=== PATIENT | male | born 1985 | race Caucasian/White ===

== ENCOUNTER 2023-08-13 10:20 | Inpatient (IN) | payer OTHER ==
[~2023-08-13] VITALS: Ht 190.5 cm; Wt 95.9 kg
[2023-08-13] MEDS ORDERED: SODIUM CHLORIDE 0.9% 100 ML ONE (12:02)
[2023-08-13] MEDS ORDERED: IOHEXOL 350 MG/ML 100 ML VIAL ONE (12:02)
[2023-08-13] MEDS ORDERED: ONDANSETRON HCL 4 MG/2 ML VIAL IVP PRN (12:15)
[2023-08-13 12:22] LABS: BASOPHILS % (AUTO) 0.1 % (0.0-2.0); EOSINOPHILS % (AUTO) 0.1 % (1.0-6.0); HEMATOCRIT 35.3 % (41-53); LYMPHOCYTES # (AUTO) 1.2 K/uL (1.0-4.8); LYMPHOCYTES % (AUTO) 12.4 % (22.0-44.0); MEAN CORPUSCULAR HEMOGLOBIN 30.9 pg (26.0-34.0); MEAN CORPUSCULAR HGB CONC 34.1 G/dL (31.0-37.0); MEAN CORPUSCULAR VOLUME 91 fL (80-100); MONOCYTES # (AUTO) 0.7 K/uL (0.1-1.0); MONOCYTES % (AUTO) 7.2 % (2.0-9.0); NEUTROPHILS # (AUTO) 7.9 K/uL (1.8-7.7); NEUTROPHILS % (AUTO) 80.2 % (40.0-70.0); PLATELET COUNT (AUTO) 258 K/uL (150-450); RED BLOOD CELL COUNT(AUTO) 3.89 MIL/uL (4.50-5.90); RED CELL DISTRIBUTION WIDTH 13.4 % (11.5-14.5); WHITE BLOOD COUNT (AUTO) 9.9 K/uL (4.5-11.0)
[2023-08-13 12:39] LABS: ANION GAP 3 mmol/L (8-16); CALCIUM, TOTAL 9.2 mg/dL (8.8-10.5); CARBON DIOXIDE 30 mmol/L (22-29); CHLORIDE 103 mmol/L (98-107); GLOMERULAR FILTR. RATE CALC > 60 mL/min (>60); GLUCOSE,RANDOM 92 mg/dL (70-110); SODIUM SERUM 136 mmol/L (136-145); UREA NITROGEN, BLOOD 7 mg/dL (7-18)
[2023-08-13] MEDS: MORPHINE SULFATE 4 MG/ML SYRINGE IVP ONE (13:43)
[2023-08-13] MEDS: ONDANSETRON HCL 4 MG/2 ML VIAL IVP ONE (13:44)
[2023-08-13] MEDS: OxyCODONE HCL/ACETAMINOPHEN 5-325 MG TABLET PO PRN ×2 (16:04→21:26)
[2023-08-13 19:22] VITALS: BP 131/68; PULSE 88; RESP 18; TEMP 98.2; O2SAT 99
[2023-08-13 19:47] VITALS: BP 143/91; PULSE 76; RESP 19; TEMP 99.3
[2023-08-13] MEDS: DOCUSATE SODIUM 100 MG CAPSULE PO SCH (20:10)
[2023-08-13 21:20] VITALS: BP 143/89; PULSE 82; RESP 18
[2023-08-14] MEDS: ZOLPIDEM TARTRATE 5 MG TABLET PO PRN (00:01)
[2023-08-14 03:52] VITALS: BP 142/75; PULSE 69; RESP 17; TEMP 99.1
[2023-08-14] MEDS: FAMOTIDINE 20 MG TABLET PO SCH (08:22)
[2023-08-14 08:51] VITALS: BP 139/77; PULSE 64; RESP 20; TEMP 98.2
[2023-08-14] MEDS ORDERED: GADOTERATE MEGLUMINE 10 MMOL/20 ML VIAL IVP ONE (13:55)
[2023-08-14 20:49] VITALS: BP 134/72; PULSE 81; RESP 20; TEMP 98.5
[2023-08-15 02:37] VITALS: BP 140/80; PULSE 70; RESP 20; TEMP 98.3
[2023-08-15 07:39] VITALS: BP 139/82; PULSE 67; RESP 18; TEMP 97.9
[2023-08-15] MEDS ORDERED: MAGNESIUM HYDROXIDE SUSPENSION 30 ML UDCUP PO PRN (12:30)
[2023-08-15] MEDS ORDERED: SODIUM CHLORIDE 0.9% 500 ML IV ONE (12:46)
[2023-08-15 13:15] LABS: BASOPHILS % (AUTO) 0.3 % (0.0-2.0); EOSINOPHILS % (AUTO) 0.1 % (1.0-6.0); HEMATOCRIT 36.2 % (41-53); HEMOGLOBIN 12.1 g/dL (13.5-17.5); LYMPHOCYTES # (AUTO) 1.2 K/uL (1.0-4.8); LYMPHOCYTES % (AUTO) 9.9 % (22.0-44.0); MEAN CORPUSCULAR HEMOGLOBIN 30.2 pg (26.0-34.0); MEAN CORPUSCULAR HGB CONC 33.4 G/dL (31.0-37.0); MEAN CORPUSCULAR VOLUME 91 fL (80-100); MONOCYTES # (AUTO) 1.4 K/uL (0.1-1.0); MONOCYTES % (AUTO) 10.9 % (2.0-9.0); NEUTROPHILS # (AUTO) 9.9 K/uL (1.8-7.7); NEUTROPHILS % (AUTO) 78.8 % (40.0-70.0); PLATELET COUNT (AUTO) 235 K/uL (150-450); RED CELL DISTRIBUTION WIDTH 13.4 % (11.5-14.5); WHITE BLOOD COUNT (AUTO) 12.6 K/uL (4.5-11.0)
[2023-08-15 13:20] LABS: ERYTHROCYTE SEDIMENTATION RATE 54 MM/HR (0-15)
[2023-08-15] MEDS: BISACODYL 10 MG RECTAL RECTAL SUPPOSITORY PR PRN (15:24)
[2023-08-15] MEDS: HEPARIN SODIUM,PORCINE 5,000 UNITS/ML VIAL SQ SCH (16:23)
[2023-08-15] MEDS: VANCOMYCIN 1.75GM/WATER(PEG) 350 ML IV ONE (19:01)
[2023-08-15 19:23] VITALS: BP 135/82; PULSE 87; RESP 19; TEMP 99.8
[2023-08-16] MEDS: VANCOMYCIN 1.25 GM/WATER(PEG) 250 ML IV SCH (00:27)
[2023-08-16 04:05] VITALS: BP 135/86; PULSE 74; RESP 19; TEMP 98
[2023-08-16 06:16] LABS: BASOPHILS % (AUTO) 0.3 % (0.0-2.0); EOSINOPHILS % (AUTO) 0.2 % (1.0-6.0); HEMATOCRIT 37.3 % (41-53); HEMOGLOBIN 12.6 g/dL (13.5-17.5); LYMPHOCYTES # (AUTO) 2.5 K/uL (1.0-4.8); LYMPHOCYTES % (AUTO) 18.9 % (22.0-44.0); MEAN CORPUSCULAR HEMOGLOBIN 30.6 pg (26.0-34.0); MEAN CORPUSCULAR HGB CONC 33.8 G/dL (31.0-37.0); MEAN CORPUSCULAR VOLUME 91 fL (80-100); MONOCYTES # (AUTO) 1.1 K/uL (0.1-1.0); MONOCYTES % (AUTO) 8.1 % (2.0-9.0); NEUTROPHILS # (AUTO) 9.6 K/uL (1.8-7.7); NEUTROPHILS % (AUTO) 72.5 % (40.0-70.0); PLATELET COUNT (AUTO) 274 K/uL (150-450); RED BLOOD CELL COUNT(AUTO) 4.12 MIL/uL (4.50-5.90); RED CELL DISTRIBUTION WIDTH 13.3 % (11.5-14.5); WHITE BLOOD COUNT (AUTO) 13.3 K/uL (4.5-11.0)
[2023-08-16 06:43] LABS: ANION GAP 9 mmol/L (8-16); C-REACTIVE PROTEIN QUANT 12.98 mg/dL (0.00-0.30); CALCIUM, TOTAL 9.2 mg/dL (8.8-10.5); CARBON DIOXIDE 28 mmol/L (22-29); CHLORIDE 99 mmol/L (98-107); CREATININE 0.62 mg/dL (0.60-1.30); GLOMERULAR FILTR. RATE CALC > 60 mL/min (>60); GLUCOSE,RANDOM 101 mg/dL (70-110); POTASSIUM 3.6 mmol/L (3.5-5.1); SODIUM SERUM 136 mmol/L (136-145); UREA NITROGEN, BLOOD 6 mg/dL (7-18)
[2023-08-16 08:01] VITALS: BP 131/83; PULSE 73; RESP 18; TEMP 98.4
[2023-08-16 12:20] LABS: APPEARANCE,URINE CLEAR (CLEAR); BILIRUBIN,URINE NEGATIVE (NEGATIVE); COLOR,URINE COLORLESS (YELLOW); GLUCOSE, URINE (UA) NEGATIVE (NEGATIVE); KETONES,URINE NEGATIVE (NEGATIVE); LEUKOCYTE ESTERASE ,URINE NEGATIVE (NEGATIVE); NITRATE,URINE NEGATIVE (NEGATIVE); OCCULT BLOOD,URINE NEGATIVE (NEGATIVE); PH,URINE 6.5 (5.0-8.0); PH,URINE DRUG SCREEN 6.5 (5.0-8.0); PROTEIN,URINE NEGATIVE (NEGATIVE); SPECIFIC GRAVITIY, URINE 1.006 (1.003-1.030); UROBILINOGEN,URINE <=1.0 mg/dL (<=1.0)
[2023-08-16 12:23] LABS: AMPHET/METH SCREEN,URINE NEGATIVE (NEGATIVE); BARBITURATE SCREEN, URINE NEGATIVE (NEGATIVE); BENZODIAZEPINES SCREEN,URINE NEGATIVE (NEGATIVE); CANNABINOID SCREEN,URINE NEGATIVE (NEGATIVE); COCAINE SCREEN,URINE NEGATIVE (NEGATIVE); METHADONE SCREEN, URINE NEGATIVE (NEGATIVE); OPIATE SCREEN,URINE NEGATIVE (NEGATIVE); PHENCYCLIDINE SCREEN,URINE NEGATIVE (NEGATIVE)
[2023-08-16 12:24] LABS: ALCOHOL, URINE DRUG SCREEN NEGATIVE (NEGATIVE)
[2023-08-16] MEDS: CefTAZidime PENTAHYDRATE 2 GM in DEXTROSE 5%-WATER 50 ML IV SCH (16:35)
[2023-08-16 20:56] VITALS: BP 133/85; PULSE 90; RESP 18; TEMP 100.1
[2023-08-17 05:25] VITALS: BP 125/73; PULSE 72; RESP 20; TEMP 98.4
[2023-08-17 07:17] LABS: INR 1.1 (0.9-1.1)
[2023-08-17 07:22] LABS: ANION GAP 8 mmol/L (8-16); CALCIUM, TOTAL 9.6 mg/dL (8.8-10.5); CARBON DIOXIDE 29 mmol/L (22-29); CHLORIDE 100 mmol/L (98-107); CREATININE 0.58 mg/dL (0.60-1.30); GLOMERULAR FILTR. RATE CALC > 60 mL/min (>60); GLUCOSE,RANDOM 97 mg/dL (70-110); POTASSIUM 3.7 mmol/L (3.5-5.1); SODIUM SERUM 137 mmol/L (136-145); UREA NITROGEN, BLOOD 8 mg/dL (7-18)
[2023-08-17 08:54] VITALS: BP 130/86; PULSE 86; RESP 20; TEMP 98.9
[2023-08-17 16:11] VITALS: BP 131/79; PULSE 91; RESP 18; TEMP 98.8
[2023-08-17] MEDS ORDERED: SODIUM CHLORIDE 0.9% 500 ML IV ONE (16:28)
[2023-08-17] MEDS: ACETAMINOPHEN 325 MG TABLET PO PRN (17:24)
[2023-08-17 17:30] VITALS: BP 161/79; PULSE 98; RESP 16; TEMP 100.2
[2023-08-17 18:39] VITALS: BP 129/65; PULSE 102; RESP 16; TEMP 99.1
[2023-08-17 20:20] VITALS: BP 122/55; PULSE 98; RESP 17; TEMP 98.5
[2023-08-18 04:00] VITALS: BP 117/72; PULSE 83; RESP 18; TEMP 99
[2023-08-18 08:22] VITALS: BP 122/77; PULSE 70; RESP 19; TEMP 98.9
[2023-08-18] MEDS: CEFEPIME HCL 2 GM in DEXTROSE 5%-WATER 50 ML IV SCH (15:44)
[2023-08-18 20:28] VITALS: BP 124/66; PULSE 84; RESP 18; TEMP 100.1
[2023-08-19 05:25] VITALS: BP 125/81; PULSE 69; RESP 18; TEMP 97.9
[2023-08-19 06:42] LABS: BASOPHILS % (AUTO) 0.3 % (0.0-2.0); EOSINOPHILS % (AUTO) 0.3 % (1.0-6.0); HEMATOCRIT 37.8 % (41-53); HEMOGLOBIN 12.9 g/dL (13.5-17.5); LYMPHOCYTES # (AUTO) 2.1 K/uL (1.0-4.8); LYMPHOCYTES % (AUTO) 17.3 % (22.0-44.0); MEAN CORPUSCULAR HEMOGLOBIN 30.7 pg (26.0-34.0); MEAN CORPUSCULAR HGB CONC 34.1 G/dL (31.0-37.0); MEAN CORPUSCULAR VOLUME 90 fL (80-100); MONOCYTES % (AUTO) 8.6 % (2.0-9.0); NEUTROPHILS # (AUTO) 8.8 K/uL (1.8-7.7); NEUTROPHILS % (AUTO) 73.5 % (40.0-70.0); PLATELET COUNT (AUTO) 285 K/uL (150-450); RED CELL DISTRIBUTION WIDTH 13.6 % (11.5-14.5)
[2023-08-19 07:01] LABS: ALANINE AMINOTRANSFERASE 29 U/L (12-78); ALBUMIN 2.3 g/dL (3.4-5.0); ALKALINE PHOSPHATASE 86 U/L (46-116); ANION GAP 6 mmol/L (8-16); ASPARTATE AMINOTRANSFERASE 20 U/L (15-37); BILIRUBIN,TOTAL 0.5 mg/dL (0.1-1.0); C-REACTIVE PROTEIN QUANT 11.73 mg/dL (0.00-0.30); CALCIUM, TOTAL 9.5 mg/dL (8.8-10.5); CARBON DIOXIDE 29 mmol/L (22-29); CHLORIDE 101 mmol/L (98-107); CREATININE 0.65 mg/dL (0.60-1.30); GLOMERULAR FILTR. RATE CALC > 60 mL/min (>60); GLUCOSE,RANDOM 101 mg/dL (70-110); POTASSIUM 4.1 mmol/L (3.5-5.1); SODIUM SERUM 136 mmol/L (136-145); TOTAL PROTEIN, SERUM 8.3 g/dL (6.4-8.2); UREA NITROGEN, BLOOD 12 mg/dL (7-18)
[2023-08-19 08:00] VITALS: BP 125/74; PULSE 70; RESP 18; TEMP 98.5
[2023-08-19 20:41] VITALS: BP 142/66; PULSE 74; RESP 18; TEMP 98.3
[2023-08-19] MEDS ORDERED: SODIUM CHLORIDE 0.9% 500 ML IV ONE (23:23)
[2023-08-20 08:19] VITALS: BP 125/75; PULSE 66; RESP 18; TEMP 98.7
[2023-08-20 19:32] VITALS: BP 125/70; PULSE 83; RESP 18; TEMP 99.1
[2023-08-21 03:24] VITALS: BP 118/69; PULSE 79; RESP 18; TEMP 98.6
[2023-08-21 07:18] LABS: BASOPHILS % (AUTO) 0.3 % (0.0-2.0); EOSINOPHILS % (AUTO) 0.3 % (1.0-6.0); HEMATOCRIT 40.6 % (41-53); HEMOGLOBIN 13.9 g/dL (13.5-17.5); LYMPHOCYTES # (AUTO) 2.6 K/uL (1.0-4.8); LYMPHOCYTES % (AUTO) 21.9 % (22.0-44.0); MEAN CORPUSCULAR HGB CONC 34.2 G/dL (31.0-37.0); MEAN CORPUSCULAR VOLUME 90 fL (80-100); MONOCYTES # (AUTO) 1.1 K/uL (0.1-1.0); MONOCYTES % (AUTO) 8.9 % (2.0-9.0); NEUTROPHILS # (AUTO) 8.3 K/uL (1.8-7.7); NEUTROPHILS % (AUTO) 68.6 % (40.0-70.0); PLATELET COUNT (AUTO) 369 K/uL (150-450); RED BLOOD CELL COUNT(AUTO) 4.49 MIL/uL (4.50-5.90); RED CELL DISTRIBUTION WIDTH 13.6 % (11.5-14.5); WHITE BLOOD COUNT (AUTO) 12.1 K/uL (4.5-11.0)
[2023-08-21 07:32] LABS: ANION GAP 9 mmol/L (8-16); C-REACTIVE PROTEIN QUANT 7.98 mg/dL (0.00-0.30); CALCIUM, TOTAL 9.9 mg/dL (8.8-10.5); CARBON DIOXIDE 28 mmol/L (22-29); CHLORIDE 99 mmol/L (98-107); CREATININE 0.63 mg/dL (0.60-1.30); GLOMERULAR FILTR. RATE CALC > 60 mL/min (>60); GLUCOSE,RANDOM 102 mg/dL (70-110); POTASSIUM 3.9 mmol/L (3.5-5.1); SODIUM SERUM 136 mmol/L (136-145); UREA NITROGEN, BLOOD 14 mg/dL (7-18)
[2023-08-21 09:01] VITALS: BP 128/79; PULSE 79; RESP 18; TEMP 97.7
[2023-08-21] MEDS: LORazepam 2 MG/ML VIAL IVP ONE (09:18)
[2023-08-21] MEDS ORDERED: GADOTERATE MEGLUMINE 10 MMOL/20 ML VIAL IVP ONE (09:21)
[2023-08-21] MEDS: MORPHINE SULFATE 2 MG/ML SYRINGE IVP ONE (10:23)
[2023-08-21 20:07] VITALS: BP 130/80; PULSE 100; RESP 20; TEMP 99.1
[2023-08-22 03:49] VITALS: BP 127/54; PULSE 84; RESP 18; TEMP 98.3
[2023-08-22 08:28] VITALS: BP 136/65; PULSE 89; RESP 20; TEMP 98.8
[2023-08-22 19:53] VITALS: BP 147/71; PULSE 91; RESP 19; TEMP 98.3
[2023-08-23 04:21] VITALS: BP 118/70; PULSE 82; RESP 19; TEMP 98.6
[2023-08-23 08:45] VITALS: BP 122/74; PULSE 80; RESP 19; TEMP 98.4
[2023-08-23] MEDS ORDERED: SODIUM CHLORIDE 0.9% 500 ML IV ONE (17:06)
[2023-08-23 19:57] VITALS: BP 131/75; PULSE 92; RESP 20; TEMP 98.4
[2023-08-24 04:25] VITALS: BP 129/79; PULSE 83; RESP 20; TEMP 98.4
[2023-08-24 08:06] LABS: QUANTIFERON+,Mitogen Value 0.98 IU/mL; QUANTIFERON, TB GOLD PLUS Negative (Negative)
[2023-08-24 08:52] VITALS: BP 138/75; PULSE 75; RESP 20; TEMP 98.1
[2023-08-24 16:32] VITALS: BP 137/75; PULSE 80; RESP 18; TEMP 98.7
[2023-08-24] MEDS: LORazepam 2 MG/ML VIAL IVP PRN (18:40)
[2023-08-24 20:33] VITALS: BP 127/97; PULSE 95; RESP 20; TEMP 98
[2023-08-25 05:05] VITALS: BP 133/83; PULSE 86; RESP 20; TEMP 98.7
[2023-08-25 06:44] LABS: BASOPHILS % (AUTO) 0.2 % (0.0-2.0); EOSINOPHILS % (AUTO) 0.3 % (1.0-6.0); HEMATOCRIT 38.3 % (41-53); HEMOGLOBIN 12.9 g/dL (13.5-17.5); LYMPHOCYTES # (AUTO) 1.6 K/uL (1.0-4.8); LYMPHOCYTES % (AUTO) 12.5 % (22.0-44.0); MEAN CORPUSCULAR HEMOGLOBIN 30.7 pg (26.0-34.0); MEAN CORPUSCULAR HGB CONC 33.8 G/dL (31.0-37.0); MEAN CORPUSCULAR VOLUME 91 fL (80-100); MONOCYTES # (AUTO) 0.8 K/uL (0.1-1.0); MONOCYTES % (AUTO) 6.2 % (2.0-9.0); NEUTROPHILS # (AUTO) 10.2 K/uL (1.8-7.7); NEUTROPHILS % (AUTO) 80.8 % (40.0-70.0); PLATELET COUNT (AUTO) 350 K/uL (150-450); RED BLOOD CELL COUNT(AUTO) 4.22 MIL/uL (4.50-5.90); RED CELL DISTRIBUTION WIDTH 13.3 % (11.5-14.5); WHITE BLOOD COUNT (AUTO) 12.7 K/uL (4.5-11.0)
[2023-08-25 06:59] LABS: ALANINE AMINOTRANSFERASE 34 U/L (12-78); ALBUMIN 2.4 g/dL (3.4-5.0); ALKALINE PHOSPHATASE 88 U/L (46-116); ANION GAP 7 mmol/L (8-16); ASPARTATE AMINOTRANSFERASE 17 U/L (15-37); BILIRUBIN,TOTAL 0.4 mg/dL (0.1-1.0); C-REACTIVE PROTEIN QUANT 6.65 mg/dL (0.00-0.30); CALCIUM, TOTAL 9.7 mg/dL (8.8-10.5); CARBON DIOXIDE 32 mmol/L (22-29); CHLORIDE 94 mmol/L (98-107); CREATININE 0.77 mg/dL (0.60-1.30); GLOMERULAR FILTR. RATE CALC > 60 mL/min (>60); GLUCOSE,RANDOM 120 mg/dL (70-110); SODIUM SERUM 133 mmol/L (136-145); UREA NITROGEN, BLOOD 14 mg/dL (7-18)
[2023-08-25] MEDS ORDERED: GADOTERATE MEGLUMINE 10 MMOL/20 ML VIAL IVP ONE (07:28)
[2023-08-25 08:07] VITALS: BP 121/76; PULSE 82; RESP 18; TEMP 98.1
[2023-08-25] MEDS ORDERED: MORPHINE SULFATE/PF 1 MG/ML 10 ML AMP IVP ONE (09:30)
[2023-08-25] MEDS: MORPHINE SULFATE 2 MG/ML SYRINGE IVP ONE (10:14)
[2023-08-25] MEDS: MORPHINE SULFATE 2 MG/ML SYRINGE IVP PRN (12:02)
[2023-08-25] MEDS: MEROPENEM 2 GM in SODIUM CHLORIDE 0.9% 100 ML IV SCH (16:00)
[2023-08-25 20:20] VITALS: BP 136/76; PULSE 99; RESP 18; TEMP 98.4
[2023-08-26 04:56] VITALS: BP 136/79; PULSE 79; RESP 18; TEMP 98.4
[2023-08-26 08:42] VITALS: BP 128/73; PULSE 82; RESP 18; TEMP 98.6
[2023-08-26] MEDS: GABAPENTIN 300 MG CAPSULE PO SCH (15:59)
[2023-08-26 19:45] VITALS: BP 125/89; PULSE 98; RESP 20; TEMP 99.1
[2023-08-27] MEDS: TraMADol HCL 50 MG TABLET PO PRN (04:51)
[2023-08-27 04:56] VITALS: BP 131/72; PULSE 74; RESP 20; TEMP 98.1
[2023-08-27 08:08] LABS: BASOPHILS % (AUTO) 0.2 % (0.0-2.0); EOSINOPHILS % (AUTO) 0.3 % (1.0-6.0); HEMATOCRIT 36.3 % (41-53); HEMOGLOBIN 12.3 g/dL (13.5-17.5); LYMPHOCYTES # (AUTO) 1.6 K/uL (1.0-4.8); LYMPHOCYTES % (AUTO) 12.6 % (22.0-44.0); MEAN CORPUSCULAR HEMOGLOBIN 30.7 pg (26.0-34.0); MEAN CORPUSCULAR HGB CONC 33.9 G/dL (31.0-37.0); MEAN CORPUSCULAR VOLUME 91 fL (80-100); MONOCYTES # (AUTO) 0.9 K/uL (0.1-1.0); MONOCYTES % (AUTO) 7.2 % (2.0-9.0); NEUTROPHILS # (AUTO) 10.3 K/uL (1.8-7.7); NEUTROPHILS % (AUTO) 79.7 % (40.0-70.0); PLATELET COUNT (AUTO) 323 K/uL (150-450); RED BLOOD CELL COUNT(AUTO) 4.01 MIL/uL (4.50-5.90); RED CELL DISTRIBUTION WIDTH 13.5 % (11.5-14.5)
[2023-08-27 08:13] VITALS: BP 118/78; PULSE 88; RESP 18; TEMP 98.2
[2023-08-27 08:47] LABS: ALANINE AMINOTRANSFERASE 34 U/L (12-78); ALBUMIN 2.3 g/dL (3.4-5.0); ALKALINE PHOSPHATASE 88 U/L (46-116); ANION GAP 7 mmol/L (8-16); ASPARTATE AMINOTRANSFERASE 21 U/L (15-37); BILIRUBIN,TOTAL 0.4 mg/dL (0.1-1.0); C-REACTIVE PROTEIN QUANT 8.82 mg/dL (0.00-0.30); CALCIUM, TOTAL 9.6 mg/dL (8.8-10.5); CARBON DIOXIDE 30 mmol/L (22-29); CHLORIDE 97 mmol/L (98-107); CREATININE 0.63 mg/dL (0.60-1.30); GLOMERULAR FILTR. RATE CALC > 60 mL/min (>60); GLUCOSE,RANDOM 109 mg/dL (70-110); POTASSIUM 4.1 mmol/L (3.5-5.1); SODIUM SERUM 134 mmol/L (136-145); TOTAL PROTEIN, SERUM 8.6 g/dL (6.4-8.2); UREA NITROGEN, BLOOD 16 mg/dL (7-18)
[2023-08-27 19:33] VITALS: BP 115/76; PULSE 100; RESP 19; TEMP 98.8
[2023-08-28 04:34] VITALS: BP 119/74; PULSE 90; RESP 18; TEMP 98.1
[2023-08-28 07:20] LABS: ANION GAP 6 mmol/L (8-16); C-REACTIVE PROTEIN QUANT 9.11 mg/dL (0.00-0.30); CARBON DIOXIDE 31 mmol/L (22-29); CHLORIDE 96 mmol/L (98-107); CREATININE 0.69 mg/dL (0.60-1.30); GLOMERULAR FILTR. RATE CALC > 60 mL/min (>60); GLUCOSE,RANDOM 106 mg/dL (70-110); POTASSIUM 4.1 mmol/L (3.5-5.1); SODIUM SERUM 133 mmol/L (136-145); UREA NITROGEN, BLOOD 15 mg/dL (7-18)
[2023-08-28 08:09] VITALS: BP 131/88; PULSE 86; RESP 19; TEMP 98.3
[2023-08-28 20:00] VITALS: BP 129/79; PULSE 95; RESP 20; TEMP 99.7
[2023-08-29 04:03] VITALS: BP 130/75; PULSE 91; RESP 15; TEMP 98.1
[2023-08-29 07:02] LABS: BASOPHILS % (AUTO) 0.3 % (0.0-2.0); EOSINOPHILS % (AUTO) 0.2 % (1.0-6.0); HEMATOCRIT 37.7 % (41-53); HEMOGLOBIN 12.8 g/dL (13.5-17.5); LYMPHOCYTES % (AUTO) 17.3 % (22.0-44.0); MEAN CORPUSCULAR HEMOGLOBIN 30.7 pg (26.0-34.0); MEAN CORPUSCULAR HGB CONC 33.9 G/dL (31.0-37.0); MEAN CORPUSCULAR VOLUME 91 fL (80-100); MONOCYTES # (AUTO) 0.8 K/uL (0.1-1.0); NEUTROPHILS # (AUTO) 8.9 K/uL (1.8-7.7); NEUTROPHILS % (AUTO) 75.2 % (40.0-70.0); PLATELET COUNT (AUTO) 352 K/uL (150-450); RED BLOOD CELL COUNT(AUTO) 4.16 MIL/uL (4.50-5.90); RED CELL DISTRIBUTION WIDTH 13.7 % (11.5-14.5); WHITE BLOOD COUNT (AUTO) 11.8 K/uL (4.5-11.0)
[2023-08-29 07:18] LABS: ANION GAP 4 mmol/L (8-16); C-REACTIVE PROTEIN QUANT 9.15 mg/dL (0.00-0.30); CALCIUM, TOTAL 10.2 mg/dL (8.8-10.5); CARBON DIOXIDE 33 mmol/L (22-29); CHLORIDE 97 mmol/L (98-107); CREATININE 0.73 mg/dL (0.60-1.30); GLOMERULAR FILTR. RATE CALC > 60 mL/min (>60); GLUCOSE,RANDOM 112 mg/dL (70-110); POTASSIUM 4.2 mmol/L (3.5-5.1); SODIUM SERUM 134 mmol/L (136-145); UREA NITROGEN, BLOOD 18 mg/dL (7-18)
[2023-08-29 08:08] VITALS: BP 132/79; PULSE 79; RESP 20; TEMP 98.5
[2023-08-29] MEDS: OxyCODONE HCL/ACETAMINOPHEN 5-325 MG TABLET PO ONE (15:44)
[2023-08-29] MEDS ORDERED: GADOTERATE MEGLUMINE 10 MMOL/20 ML VIAL IVP ONE (15:47)
[2023-08-29] MEDS: MORPHINE SULFATE 2 MG/ML SYRINGE IVP ONE (17:27)
[2023-08-29 18:30] VITALS: BP 140/90; PULSE 100; RESP 20; TEMP 99.5
[2023-08-29 20:23] VITALS: BP 130/83; PULSE 102; RESP 20; TEMP 99
[2023-08-30 05:17] VITALS: BP 124/77; PULSE 89; RESP 18; TEMP 97.9
[2023-08-30 08:22] VITALS: BP 132/61; PULSE 86; RESP 19; TEMP 98.3
[2023-08-30] MEDS: TAMSULOSIN HCL 0.4 MG CAPSULE PO SCH (11:55)
[2023-08-30 20:22] VITALS: BP 123/74; PULSE 92; RESP 20; TEMP 98.3
[2023-08-31 05:05] VITALS: BP 123/74; PULSE 91; RESP 18; TEMP 97.5
[2023-08-31 06:33] LABS: BASOPHILS % (AUTO) 0.3 % (0.0-2.0); EOSINOPHILS % (AUTO) 0.3 % (1.0-6.0); HEMATOCRIT 38.3 % (41-53); LYMPHOCYTES # (AUTO) 2.4 K/uL (1.0-4.8); LYMPHOCYTES % (AUTO) 19.9 % (22.0-44.0); MEAN CORPUSCULAR HEMOGLOBIN 30.6 pg (26.0-34.0); MEAN CORPUSCULAR HGB CONC 33.8 G/dL (31.0-37.0); MEAN CORPUSCULAR VOLUME 91 fL (80-100); MONOCYTES # (AUTO) 0.8 K/uL (0.1-1.0); MONOCYTES % (AUTO) 6.6 % (2.0-9.0); NEUTROPHILS # (AUTO) 8.6 K/uL (1.8-7.7); NEUTROPHILS % (AUTO) 72.9 % (40.0-70.0); PLATELET COUNT (AUTO) 354 K/uL (150-450); RED BLOOD CELL COUNT(AUTO) 4.23 MIL/uL (4.50-5.90); RED CELL DISTRIBUTION WIDTH 13.9 % (11.5-14.5); WHITE BLOOD COUNT (AUTO) 11.8 K/uL (4.5-11.0)
[2023-08-31 07:21] LABS: ALANINE AMINOTRANSFERASE 41 U/L (12-78); ALBUMIN 2.3 g/dL (3.4-5.0); ALKALINE PHOSPHATASE 96 U/L (46-116); ANION GAP 5 mmol/L (8-16); ASPARTATE AMINOTRANSFERASE 27 U/L (15-37); BILIRUBIN,TOTAL 0.5 mg/dL (0.1-1.0); C-REACTIVE PROTEIN QUANT 8.62 mg/dL (0.00-0.30); CALCIUM, TOTAL 10.4 mg/dL (8.8-10.5); CARBON DIOXIDE 30 mmol/L (22-29); CHLORIDE 98 mmol/L (98-107); CREATININE 0.79 mg/dL (0.60-1.30); GLOMERULAR FILTR. RATE CALC > 60 mL/min (>60); GLUCOSE,RANDOM 109 mg/dL (70-110); POTASSIUM 4.5 mmol/L (3.5-5.1); SODIUM SERUM 133 mmol/L (136-145); UREA NITROGEN, BLOOD 21 mg/dL (7-18)
[2023-08-31 08:19] VITALS: BP 122/80; PULSE 96; RESP 18; TEMP 98.5
[2023-08-31 19:48] VITALS: BP 142/90; PULSE 94; RESP 18; TEMP 97.9
[2023-09-01 04:46] VITALS: BP 131/88; PULSE 105; RESP 18; TEMP 98.3
[2023-09-01 07:58] VITALS: BP 138/86; PULSE 94; RESP 18; TEMP 98.6
[2023-09-01] MEDS ORDERED: SODIUM CHLORIDE 0.9% 0 ML IV ONE (10:31)
[2023-09-01] MEDS ORDERED: SODIUM CHLORIDE 0.9% 500 ML IV ONE (10:35)
[2023-09-01 16:00] VITALS: BP 130/84; PULSE 92; RESP 18; TEMP 98.5
[2023-09-01 20:07] VITALS: BP 157/93; PULSE 93; RESP 20; TEMP 98.3
[2023-09-02 04:11] VITALS: BP 126/81; PULSE 92; RESP 18; TEMP 97.7
[2023-09-02 08:03] VITALS: BP 137/88; PULSE 81; RESP 20; TEMP 97.9
[2023-09-02] MEDS: PHENYLEPHRINE/SHK LV/MIN OIL/PET 57 GM OINTMENT TP PRN (16:29)
[2023-09-02 20:22] VITALS: BP 128/82; PULSE 82; RESP 20; TEMP 98.3
[2023-09-03 04:47] VITALS: BP 128/74; PULSE 89; RESP 20; TEMP 98.6
[2023-09-03 06:48] LABS: BASOPHILS % (AUTO) 0.5 % (0.0-2.0); EOSINOPHILS % (AUTO) 0.7 % (1.0-6.0); HEMOGLOBIN 12.2 g/dL (13.5-17.5); LYMPHOCYTES # (AUTO) 2.1 K/uL (1.0-4.8); LYMPHOCYTES % (AUTO) 24.6 % (22.0-44.0); MEAN CORPUSCULAR HEMOGLOBIN 30.7 pg (26.0-34.0); MEAN CORPUSCULAR HGB CONC 33.9 G/dL (31.0-37.0); MEAN CORPUSCULAR VOLUME 91 fL (80-100); MONOCYTES # (AUTO) 0.7 K/uL (0.1-1.0); MONOCYTES % (AUTO) 8.3 % (2.0-9.0); NEUTROPHILS # (AUTO) 5.6 K/uL (1.8-7.7); NEUTROPHILS % (AUTO) 65.9 % (40.0-70.0); PLATELET COUNT (AUTO) 331 K/uL (150-450); RED BLOOD CELL COUNT(AUTO) 3.97 MIL/uL (4.50-5.90); RED CELL DISTRIBUTION WIDTH 13.2 % (11.5-14.5); WHITE BLOOD COUNT (AUTO) 8.5 K/uL (4.5-11.0)
[2023-09-03 06:59] LABS: ANION GAP 2 mmol/L (8-16); C-REACTIVE PROTEIN QUANT 5.16 mg/dL (0.00-0.30); CALCIUM, TOTAL 10.1 mg/dL (8.8-10.5); CARBON DIOXIDE 33 mmol/L (22-29); CHLORIDE 99 mmol/L (98-107); CREATININE 0.73 mg/dL (0.60-1.30); GLOMERULAR FILTR. RATE CALC > 60 mL/min (>60); GLUCOSE,RANDOM 96 mg/dL (70-110); POTASSIUM 4.2 mmol/L (3.5-5.1); SODIUM SERUM 134 mmol/L (136-145); UREA NITROGEN, BLOOD 19 mg/dL (7-18)
[2023-09-03 08:13] VITALS: BP 139/86; PULSE 101; RESP 18; TEMP 98.7
[2023-09-03 19:57] VITALS: BP 133/90; PULSE 98; RESP 18; TEMP 98.6
[2023-09-04 04:56] VITALS: BP 128/89; PULSE 78; RESP 18; TEMP 98.1
[2023-09-04 08:13] VITALS: BP 131/62; PULSE 98; RESP 18; TEMP 98.3
[2023-09-04 19:21] VITALS: BP 133/89; PULSE 99; RESP 18; TEMP 98.8
[2023-09-05 04:22] VITALS: BP 142/91; PULSE 98; RESP 18; TEMP 98.9
== END 2023-09-05 06:33 | DRG 539 ==
LOC: EMS 10:27 → EDH 13:30 → 6N 18:57 → 6S 08-21 10:23
PROVIDERS: ADMIT Internal Medicine; ATTEND Internal Medicine
PROC: 05HA33Z Insertion of Infusion Device into Left Brachial Vein, Percutaneous Approach (ICD-10-PCS; principal; 2023-08-23)
PROC: 05HB33Z Insertion of Infusion Device into Right Basilic Vein, Percutaneous Approach (ICD-10-PCS; 2023-08-29)
DX: M46.26 Osteomyelitis of vertebra, lumbar region (principal); K68.12 Psoas muscle abscess; M00.9 Pyogenic arthritis, unspecified; R78.81 Bacteremia; M46.46 Discitis, unspecified, lumbar region; M48.061 Spinal stenosis, lumbar region without neurogenic claudication; R15.9 Full incontinence of feces; F11.10 Opioid abuse, uncomplicated; F19.10 Other psychoactive substance abuse, uncomplicated; G89.29 Other chronic pain; M60.9 Myositis, unspecified; M47.813 Spondylosis without myelopathy or radiculopathy, cervicothoracic region; S73.191A Other sprain of right hip, initial encounter
CPT/HCPCS: 36245; 36569; 71045; 72132; 72156; 72157; 72158; 72197; 76937; 80048; 80053; 80307; 81003; 85025; 85610; 85651; 85730; 86140; 86480; 87040; 87077; 87205; 93306; 97163; 97530; 99285; J0692; J0713; J1644; J2060; J2270; J2405; J7040; J7050; J7060; Q9967; 36415-L1; 36415-TC